=== PATIENT | male | born 1980 | race Caucasian/White ===

== ENCOUNTER → 2020-04-13 02:17 | Outpatient (CLI) | payer OTHER, SELFPAY ==
[2020-04-13 21:58] LABS: SARS-CoV-2 RNA PCR Negative
== END ==
PROVIDERS: PCP Family Medicine; Visit Provider Internal Medicine Gastroenterology
DX: Z01.812 Encounter for preprocedural laboratory examination (principal); Z20.822 Contact with and (suspected) exposure to COVID-19
CPT/HCPCS: C9803; U0003; U0005

== ENCOUNTER 2020-04-16 00:57 | Day surgery (SDC) | payer OTHER, SELFPAY ==
[2020-03-26 08:39] VITALS: BMI 24.4
--- NOTE | 2020-04-13 09:38 | WPDANESEPPF ---
Anes - Initial Pre Proc Eval Procedure: Operation Date: 04/16/20 12:00 Proposed Procedures p Colonoscopy - Jasvir Whelan DO Date/Time: 04/13/20 09:38 Surgeon: Jasvir Whelan DO Pre Op Diagnosis: Bright Red Blood per Rectum, Polyp of Colon Patient Data Age: 40 Gender: M Height: 1.75 m Weight: 75 kg Allergies Allergy/AdvReac Type Severity Reaction Status Date / Time No Known Allergies Allergy Verified 04/16/20 10:33 Home Medications Medication Instructions Recorded Confirmed Type famotidine 20 mg tablet 20 mg PO BID #120 tablet 11/17/19 04/13/20 Rx omeprazole 20 mg capsule,delayed 20 mg PO DAILY #30 cap 02/01/20 04/13/20 Rx release cyanocobalamin (vitamin B-12) 1,000 mcg PO DAILY 03/26/20 04/13/20 History [Vitamin B-12] Patient hx anesthesia problems: none Family hx anesthesia problems: none PMFSH Past Medical History Medical History (Updated 11/11/19 @ 10:23 by Huong Walker NP) Chronic colitis diagnosed 2011 - Dr Moran Hx of hemorrhoids Hyperlipidemia Normal colonoscopy Dr Moran - 2011 Rectal bleeding Surgical History Surgical History (Updated 11/11/19 @ 10:35 by Huong Walker NP) Hx of colonoscopy with polypectomy (~2001) w/Dr Whelan 2001 Social History Social History Smoking packs per day: 1 Smoking cigarettes per day: 20.0 Years smoked: 12 Smoking pack-years: 12.00 Smoking status: Former smoker Tobacco type: cigarettes Alcohol intake: current Alcohol use details: very rarely Substance use type: does not use Living arrangements: with family Gender identity (if verbalized by the patient): Male Spiritual care concerns: No Anes - Eval Final PreProcedure Day of Procedure 04/13/20 09:38 Patient weight: normal Heart: regular rate and rhythm Lungs: clear to auscultation and normal air movement Airway: Mallampati scale class II Neurological: alert and oriented Last oral intake: >/= 8 hours ASA classification: II Emergent: no Anesthetic plan: proceed Anesthesia type and monitoring: general GIVS and standard monitoring Informed Consent: The patient's anesthetic plan and its attendant risks and benefits were discussed with the patient/family/POA. Questions were solicited and answers provided to the satisfaction of the patient/family/POA.
[2020-04-16 10:35] VITALS: BP 120/86; PULSE 82; RESP 18; TEMP 37.2; O2SAT 97
[2020-04-16] MEDS: LACTATED RINGERS 1,000 ML 150 ML IV CONT (10:43)
--- NOTE | 2020-04-16 12:03 | WPDGICN ---
GI Consult Note Consult date/time: 04/16/20 12:03 HPI: Reason for visit is colonoscopy. This very pleasant gentleman seen in consultation request the primary physician. Here we have a gentleman that is been having recurrent rectal bleeding. This most likely perianal in origin. Underlying inflammatory neoplastic disease should be excluded. Previously he has had hyperplastic polyps. GERD well controlled on medication. HLD. Recommendation: Colonoscopy. History: This very pleasant gentleman is here for colonoscopy. Has a history of hyperplastic colon polyps. Continues to have rectal bleeding of bright red blood per rectum. Blood is on the stool and on the tissue paper. He has a history of reflux disease well controlled on medication. Physical examination: General: very pleasant patient in no acute distress. HEENT: Head was normocephalic sclerae is clear mouth without masses neck was supple. Heart: Rate rhythm regular without S3 or S4. Lungs: CTA. Abdomen: Soft with no guarding or rigidity. Bowel sounds were active. Neurologic: Cranial nerves 2 through 12 intact. No focal defects. No clonus. Musculoskeletal system: Revealed no joint tenderness or swelling no muscle atrophy. Extremities: Reveal no significant edema. Skin: Warm and dry with normal turgor. Mental status: intact. Patient is alert and oriented. Review of Systems Review of Systems: All systems reviewed & are unremarkable except as noted in HPI and below PMFSH Past Medical History Medical History (Updated 04/16/20 @ 12:03 by Jasvir Whelan DO) GERD (gastroesophageal reflux disease) HLD (hyperlipidemia) Surgical History Surgical History (Updated 11/11/19 @ 10:35 by Huong Walker NP) Hx of colonoscopy with polypectomy (~2001) w/Dr Whelan 2001 Social History Social History Smoking packs per day: 1 Smoking cigarettes per day: 20.0 Years smoked: 12 Smoking pack-years: 12.00 Smoking status: Former smoker Tobacco type: cigarettes Alcohol intake: current Alcohol use details: very rarely Substance use type: does not use Living arrangements: with family Gender identity (if verbalized by the patient): Male Spiritual care concerns: No Meds Home Medications and Allergies Home Medications Medication Instructions Recorded Confirmed Type famotidine 20 mg tablet 20 mg PO BID #120 tablet 11/17/19 04/13/20 Rx omeprazole 20 mg capsule,delayed 20 mg PO DAILY #30 cap 02/01/20 04/13/20 Rx release cyanocobalamin (vitamin B-12) 1,000 mcg PO DAILY 03/26/20 04/13/20 History [Vitamin B-12] Allergies Allergy/AdvReac Type Severity Reaction Status Date / Time No Known Allergies Allergy Verified 04/16/20 10:33 Vital Signs Vital Signs - 24 hr 04/16/20 10:35 Temperature 37.2 C Pulse Rate 82 Respiratory Rate 18 Blood Pressure 120/86 Pulse Oximetry 97
[2020-04-16] MEDS: SIMETHICONE ORAL SUSPENSION 20 MG/0.3 ML 30 ML BOTTLE 0.6 ML IRRIGATION (12:20)
[2020-04-16 12:30] VITALS: BP 102/59; PULSE 74; RESP 18; O2SAT 96
[2020-04-16 12:40] VITALS: BP 102/60; PULSE 68; RESP 19; O2SAT 96
[2020-04-16 12:50] VITALS: BP 116/73; PULSE 70; RESP 20; O2SAT 97
== END 2020-04-16 12:58 | disposition home or self-care (01) ==
PROVIDERS: PCP Family Medicine; Visit Provider Internal Medicine Gastroenterology
PROC: 0DJD8ZZ Inspection of Lower Intestinal Tract, Via Natural or Artificial Opening Endoscopic (ICD-10-PCS; CPT 45378; principal; 2020-04-16 12:00)
DX: K62.5 Hemorrhage of anus and rectum (principal); K62.1 Rectal polyp; K21.9 Gastro-esophageal reflux disease without esophagitis; E78.5 Hyperlipidemia, unspecified; Z86.010 Personal history of colon polyps; Z87.891 Personal history of nicotine dependence
CPT/HCPCS: 45380; 88305; C9803; J2704; J7120; U0003; U0005

== ENCOUNTER → 2020-04-27 01:32 | Outpatient (CLI) | payer OTHER, SELFPAY ==
[2020-04-28 08:28] LABS: SARS-CoV-2 RNA PCR Negative
== END ==
PROVIDERS: PCP Family Medicine; Visit Provider Internal Medicine Gastroenterology
DX: Z01.812 Encounter for preprocedural laboratory examination (principal); Z20.822 Contact with and (suspected) exposure to COVID-19
CPT/HCPCS: C9803; U0003; U0005

== ENCOUNTER 2020-04-30 00:52 | Day surgery (SDC) | payer OTHER, SELFPAY ==
[2020-04-13 12:21] VITALS: BMI 24.4
[2020-04-30 10:43] VITALS: BP 117/75; PULSE 64; RESP 17; TEMP 36.8; O2SAT 99; BMI 23.9
[2020-04-30] MEDS: LACTATED RINGERS 1,000 ML 150 ML IV CONT (10:49)
--- NOTE | 2020-04-30 11:05 | WPDANESEPPF ---
Anes - Initial Pre Proc Eval Procedure: Operation Date: 04/30/20 12:00 Proposed Procedures p Esophagogastroduodenoscopy - Jasvir Whelan DO Date/Time: 04/30/20 11:05 Surgeon: Jasvir Whelan DO Pre Op Diagnosis: Gastroesophageal Reflux Patient Data Age: 40 Gender: M Height: 5 ft 9 in Weight: 73.5 kg Last Vital Signs Temp 98.2 F 04/30/20 10:43 Pulse 64 04/30/20 10:43 Resp 17 04/30/20 10:43 BP 117/75 04/30/20 10:43 Pulse Ox 99 04/30/20 10:43 Allergies Allergy/AdvReac Type Severity Reaction Status Date / Time No Known Allergies Allergy Verified 04/30/20 10:42 Home Medications Medication Instructions Recorded Confirmed Type famotidine 20 mg tablet 20 mg PO BID #120 tablet 11/17/19 04/30/20 Rx omeprazole 20 mg capsule,delayed 20 mg PO DAILY #30 cap 02/01/20 04/30/20 Rx release cyanocobalamin (vitamin B-12) 1,000 mcg PO DAILY 03/26/20 04/30/20 History [Vitamin B-12] Patient hx anesthesia problems: none Family hx anesthesia problems: none [facility] Past Medical History Medical History (Updated 04/16/20 @ 12:03 by Jasvir Whelan DO) GERD (gastroesophageal reflux disease) HLD (hyperlipidemia) Surgical History Surgical History (Updated 11/11/19 @ 10:35 by Huong Walker NP) Hx of colonoscopy with polypectomy (~2001) w/Dr Whelan 2001 Social History Social History Smoking packs per day: 1 Smoking cigarettes per day: 20.0 Years smoked: 12 Smoking pack-years: 12.00 Smoking status: Former smoker Tobacco type: cigarettes Alcohol intake: current Substance use type: does not use Living arrangements: with family Gender identity (if verbalized by the patient): Male Spiritual care concerns: No Anes - Eval Final PreProcedure Day of Procedure 04/30/20 11:05 Patient weight: overweight Heart: regular rate and rhythm Lungs: clear to auscultation Airway: Mallampati scale class II Neurological: alert and oriented Last oral intake: >/= 8 hours ASA classification: II Emergent: no Anesthetic plan: proceed Anesthesia type and monitoring: general GIVS and standard monitoring Informed Consent: The patient's anesthetic plan and its attendant risks and benefits were discussed with the patient/family/POA. Questions were solicited and answers provided to the satisfaction of the patient/family/POA.
--- NOTE | 2020-04-30 12:04 | WPDHPUPDATE1 ---
History and Physical Update Update Date/Time: 04/30/20 12:04 History and Physical has been reviewed, including an updated exam of the patient. There are NO changes in the patient's condition. Risks, benefits, and alternatives have been discussed and questions answered. Patient agrees to proceed with procedure.
[2020-04-30] MEDS: BENZOCAINE (*SP) 60 ML SPRAY CAN (HURRICAINE) 1 SPRAY MUCOUS MEM (12:05)
[2020-04-30 12:15] VITALS: BP 102/68; PULSE 69; RESP 18; O2SAT 100
[2020-04-30 12:25] VITALS: BP 94/70; PULSE 62; RESP 19; O2SAT 99
[2020-04-30 12:35] VITALS: BP 103/70; PULSE 70; RESP 21; O2SAT 98
== END 2020-04-30 12:48 | disposition home or self-care (01) ==
PROVIDERS: PCP Family Medicine; Visit Provider Internal Medicine Gastroenterology
PROC: 0DJ08ZZ Inspection of Upper Intestinal Tract, Via Natural or Artificial Opening Endoscopic (ICD-10-PCS; CPT 43235; principal; 2020-04-30 12:00)
DX: K21.9 Gastro-esophageal reflux disease without esophagitis (principal); K29.70 Gastritis, unspecified, without bleeding; E78.5 Hyperlipidemia, unspecified; Z87.891 Personal history of nicotine dependence
CPT/HCPCS: 43239; 87081; C9803; J2704; J7120; U0003; U0005

== ENCOUNTER 2020-10-13 20:35 | Emergency (ER) | payer OTHER, SELFPAY ==
[2020-10-13] VITALS (24 sets, daily range): BP systolic 118–146; BP diastolic 71–95; PULSE 65–88; RESP 12–23; TEMP 36.7; O2SAT 95–100
--- NOTE | ~2020-10-13 | XR_ITS ---
EXAMINATION: XR chest 2V DATE: 10/13/2020 20:58 INDICATION: Left chest pain. TECHNIQUE: Frontal and lateral views of the chest were obtained. COMPARISON: None. FINDINGS: There is mild atelectasis in lingula. No pleural effusion or pneumothorax. The heart size i s normal. IMPRESSION: 1. Mild atelectasis in lingula. Reviewed, dictated and finalized at location A.
--- NOTE | 2020-10-13 20:36 | ECG_ITS ---
Measurements Intervals [place] Rate: 62 P: 48 SD: 181 QRS: 66 QRSD: 94 T: 55 QT: 357 QTc: 363 Interpretive Statements SINUS RHYTHM NORMAL ECG Electronically Signed On 10-14-2020 6:39:16 CDT by Dante Calle D.O.
[2020-10-13 21:26] LABS: Basophils Absolute Auto 0.1 K/mm3 (0.0-0.1); Basophils Percent Auto 0.8 % (0.2-1.2); Eosinophils Absolute Auto 0.4 K/mm3 (0-0.3); Eosinophils Percent Auto 5.7 % (0-4.4); Hematocrit 40.2 % (42.0-52.0); Hemoglobin 13.5 g/dL (14.0-18.0); Immature Granulocyte Absolute 0.02 K/mm3 (0.00-0.031); Immature Granulocyte Percent A 0.3 % (0-0.5); Lymphocytes Percent Auto 26.9 % (18.3-44.2); Mean Corpuscular HGB Conc 33.6 g/dl (32-36); Mean Corpuscular Hemoglobin 31.1 pg (26-34); Mean Corpuscular Volume 92.6 fl (80-100); Mean Platelet Volume 9.6 fl (7.4-10.4); Monocytes Absolute Auto 0.7 K/mm3 (0.1-0.6); Monocytes Percent Auto 8.9 % (2.6-8.5); Neutrophils Absolute Auto 4.3 K/mm3 (1.3-6.7); Neutrophils Percent Auto 57.4 % (45.5-73.1); Platelet Count Result 285 k/mm3 (150-375); Red Blood Count 4.34 M/mm3 (4.6-6.20); White Blood Count 7.4 K/mm3 (4.5-10.0)
[2020-10-13 21:28] LABS: Anion Gap 9 mmol/L (8-16); Blood Urea Nitrogen 14 mg/dL (9-20); Carbon Dioxide 26 mmol/L (22-30); Chloride 105 mmol/L (98-107); Estimated Glomerular Filt Rate > 60; Glucose 115 mg/dL (65-110); Potassium 3.6 mmol/L (3.4-5.0); Sodium 140 mmol/L (137-145)
[2020-10-13 21:29] LABS: Partial Thromboplastin Time 26.3 SECONDS (22.3-36.8)
[2020-10-13 21:37] LABS: Troponin I < 0.012 ng/mL (0.000-0.034)
[2020-10-13] MEDS: KETOROLAC 30 MG/ML VIAL (*BKC) IV PUSH (22:05)
[2020-10-13] MEDS: ASPIRIN 81 MG CHEWABLE TABLET 324 MG PO (22:05)
--- NOTE | 2020-10-13 22:57 | ED.GENADULT ---
HPI - General Adult General Chief complaint: Chest Pain Stated complaint: chest pain Time Seen by Provider: 10/13/20 20:37 History of Present Illness HPI narrative: Patient is a 40-year-old male who presents ER with chest pain. Tightness in the center of his chest. No radiation. No aggravating alleviating factors. Started 2 hours prior to arrival. No exertional component. No fevers or chills or sweats. No productive cough. Has not tried any pain medications. Related Data Home Medications Medication Instructions Recorded Confirmed cyanocobalamin (vitamin B-12) 1,000 mcg PO DAILY 03/26/20 04/30/20 [Vitamin B-12] Allergies Allergy/AdvReac Type Severity Reaction Status Date / Time No Known Allergies Allergy Verified 10/13/20 22:08 Review of Systems Review of Systems: All systems reviewed & are unremarkable except as noted in HPI and below Constitutional: Constitutional: Denies chills, Denies fever(s) and Denies weakness ENT: Denies nasal congestion and Denies sore throat Cardiovascular: Cardiovascular: Reports chest pain, Denies rapid heart rate and Denies radiating jaw, neck or arm pain Respiratory: Respiratory: Denies cough and Denies dyspnea Gastrointestinal: Gastrointestinal: Denies abdominal pain, Denies heartburn, Denies nausea and Denies vomiting PMF Past Medical History Medical History (Updated 10/14/20 @ 01:15 by Claude Guerrero MD) GERD (gastroesophageal reflux disease) HLD (hyperlipidemia) Serrated adenoma of colon Surgical History Surgical History (Updated 11/11/19 @ 10:35 by Huong Walker NP) Hx of colonoscopy with polypectomy (~2001) w/Dr Whelan 2001 Social History Social History Smoking packs per day: 1 Smoking cigarettes per day: 20.0 Years smoked: 12 Smoking pack-years: 12.00 Smoking status: Former smoker Tobacco type: cigarettes Alcohol intake: current Alcohol use details: very rarely Substance use type: does not use Gender identity (if verbalized by the patient): Male Spiritual care concerns: No Exam Narrative: GENERAL: Well-appearing, well-nourished, and in no acute distress. HEAD: Normocephalic, atraumatic. ENT: Mucous membranes moist. CHEST: Clear to auscultation. No respiratory distress. HEART: Regular rate and rhythm. Normal peripheral pulses. ABDOMEN: Soft, nontender, nondistended. EXTREMITIES: Normal range of motion. No edema. SKIN: Warm, dry, no rash. NEURO: Alert and oriented x3. PSYCH: Normal mood and affect. Course Course Emergency Course: Chest pain alleviated with Toradol. Will perform second troponin as patient is low risk. Follow-up with PCP if negative. Vital Signs Vital signs: Vital Signs Pulse Rate 69 10/13/20 20:44 Respiratory Rate 15 10/13/20 20:44 Pulse Oximetry 100 10/13/20 20:44 Temperature 98.1 F 10/13/20 22:06 Pulse Rate 75 10/14/20 00:15 Respiratory Rate 16 10/14/20 00:15 Blood Pressure 115/95 H 10/14/20 00:00 Pulse Oximetry 100 10/13/20 22:06 Medical Decision Making Vital Signs Vital Signs: Vital Signs Pulse Rate 69 10/13/20 20:44 Respiratory Rate 15 10/13/20 20:44 Pulse Oximetry 100 10/13/20 20:44 Temperature 98.1 F 10/13/20 22:06 Pulse Rate 75 10/14/20 00:15 Respiratory Rate 16 10/14/20 00:15 Blood Pressure 115/95 H 10/14/20 00:00 Pulse Oximetry 100 10/13/20 22:06 Lab Data Result diagrams: 10/13/20 21:06 10/13/20 21:06 Labs: Lab Results 10/13/20 10/13/20 10/13/20 Range/Units 21:06 21:06 21:06 WBC 7.4 (4.5-10.0) K/mm3 RBC 4.34 L (4.6-6.20) M/mm3 Hgb 13.5 L (14.0-18.0) g/dL Hct 40.2 L (42.0-52.0) % MCV 92.6 (80-100) fl MCH 31.1 (26-34) pg MCHC 33.6 (32-36) g/dl RDW 12.0 (11.5-14.5) % Plt Count 285 (150-375) k/mm3 MPV 9.6 (7.4-10.4) fl Immature Gran % (Auto) 0.3 (0-0.5) % Neut % (Auto) 57.4 (45.5-73.1) % Lymph % (Auto) 26.9
[2020-10-14] VITALS: BP 115/95; PULSE 81; RESP 17
[2020-10-14 00:01] VITALS: PULSE 64
[2020-10-14 00:15] VITALS: PULSE 75; RESP 16
[2020-10-14 01:12] LABS: Troponin I < 0.012 ng/mL (0.000-0.034)
[2020-10-14 01:46] VITALS: BP 100/71; PULSE 77; RESP 20; TEMP 36.3; O2SAT 97
== END 2020-10-14 01:47 | disposition home or self-care (01) ==
PROVIDERS: Emergency Medicine; Emergency Provider Emergency Medicine; PCP Family Medicine
DX: R07.89 Other chest pain (principal); K21.9 Gastro-esophageal reflux disease without esophagitis; E78.5 Hyperlipidemia, unspecified; Z87.891 Personal history of nicotine dependence
CPT/HCPCS: 36415; 71046; 80048; 84484; 85025; 85610; 85730; 93005; 96374; 99284; A9270; J1885

== ENCOUNTER 2021-02-22 10:13 | Emergency (ER) | payer OTHER, SELFPAY ==
--- NOTE | ~2021-02-22 | XR_ITS ---
EXAMINATION: XR hand LT min 3V DATE: 02/22/2021 11:50 INDICATION: Right hand injury. TECHNIQUE: 3 views of right hand were obtained. COMPARISON: None. FINDINGS: Bone alignment is normal. No fracture. Joint spaces are well maintained. IMPRESSION: 1. Normal right hand. Reviewed, dictated and finalized at location A. KIER BOILER IMPRESSION: 1. Normal right hand.
[2021-02-22 11:44] VITALS: BP 119/72; PULSE 86; RESP 18; TEMP 36.8; O2SAT 99
--- NOTE | 2021-02-22 12:05 | ED.UPPEXIN ---
HPI - Extremity Injury (Upper) General Chief Complaint: Extremity Injury, Upper Stated Complaint: Swollen Rt Hand Time Seen by Provider: 02/22/21 12:05 Source: patient and RN notes reviewed Mode of arrival: ambulatory Limitations: no limitations History of Present Illness HPI narrative: Eddie is a 41-year-old male [facility] Patient states he hit the outside of his right hand on a friend from wrestling with his children. Patient complains of swelling and popping to the right fifth finger. Patient patient states he is been using Tylenol for pain. MD complaint: injury to: right and hand Related Data Home Medications Medication Instructions Recorded Confirmed cyanocobalamin (vitamin B-12) 1,000 mcg PO DAILY 03/26/20 02/22/21 [Vitamin B-12] Allergies Allergy/AdvReac Type Severity Reaction Status Date / Time No Known Allergies Allergy Verified 02/22/21 11:47 Review of Systems Review of Systems: CONSTITUTIONAL: Denies body aches, fever, chills, or sweats. EYES: Denies visual changes, redness, or discharge. ENT: Denies rhinorrhea, congestion, sore throat, or otalgia. CARDIOVASCULAR: Denies chest pain, palpitations, or edema. RESPIRATORY: Denies cough or dyspnea. GASTROINTESTINAL: Denies abdominal pain, nausea, vomiting, or diarrhea. GENITOURINARY: Denies dysuria or hematuria. SKIN: Denies rash, itching, or wounds. MUSCULOSKELETAL: Denies back pain, + right hand pain, or myalgia. NEUROLOGIC: Denies headache, numbness, tingling, or weakness. PSYCH: Denies depression or anxiety. All systems reviewed & are unremarkable except as noted in HPI and below PMFSH Past Medical History Medical History Anxiety GERD (gastroesophageal reflux disease) HLD (hyperlipidemia) Serrated adenoma of colon Surgical History Surgical History Hx of colonoscopy with polypectomy (~2001) w/Dr Whelan 2001 Social History Social History Smoking packs per day: 1 Smoking cigarettes per day: 20.0 Years smoked: 12 Smoking pack-years: 12.00 Smoking status: Former smoker Tobacco type: cigarettes Alcohol intake: current Alcohol use details: very rarely Substance use type: does not use Gender identity (if verbalized by the patient): Male Spiritual care concerns: No Comments At time of signature, I have reviewed and agree with nursing past medical, surgical, social and family history unless otherwise noted. Please see nursing chart for further information. There is no relevant family history pertinent to the presenting complaint Exam Narrative: GENERAL: Well-appearing, well-nourished, and in no acute distress. HEAD: Normocephalic, atraumatic. EYES: EOMI. No redness or drainage. Conjunctivae normal. ENT: Mucous membranes pink and moist. Nares clear. No rhinorrhea. TMs normal bilaterally. Throat normal. Uvula midline. NECK: Normal AROM. Supple. No lymphadenopathy. CHEST: No respiratory distress. Clear to auscultation. HEART: Regular rate and rhythm. No murmur appreciated. Normal peripheral pulses. ABDOMEN: Soft, nontender, nondistended, normal active bowel sounds. MUSCULOSKELETAL: No bony tenderness. EXTREMITIES: Normal range of motion. Right fifth finger with mild edema, almost full range of motion with minor deficit in the fifth finger, neurovascular exam is intact SKIN: Warm, dry, no rash. Capillary refill normal. Normal skin turgor. NEURO: No focal deficits. Alert and oriented x3. Gait steady. PSYCH: Normal affect. No signs of depression or anxiety. Course Vital Signs Vital signs: Vital Signs Temperature 36.8 C 02/22/21 11:44 Pulse Rate 86 02/22/21 11:44 Respiratory Rate 18 02/22/21 11:44 Blood Pressure 119/72 02/22/21 11:44 Pulse Oximetry 99 02/22/21 11:44 Temperature 36.8 C
== END 2021-02-22 12:18 | disposition home or self-care (01) ==
PROVIDERS: Emergency Provider Nurse Practitioner Family; PCP Family Medicine
DX: S63.91XA Sprain of unspecified part of right wrist and hand, initial encounter (principal); Z87.891 Personal history of nicotine dependence; W51.XXXA Accidental striking against or bumped into by another person, initial encounter
CPT/HCPCS: 73130; 99213; G0463

== ENCOUNTER 2021-04-28 10:00 | Emergency (ER) | payer OTHER, SELFPAY ==
--- NOTE | 2021-04-28 10:16 | ED.URI ---
HPI - URI/Sore Throat General Chief Complaint: Upper Respiratory Infection Stated Complaint: cold symptoms Time Seen by Provider: 04/28/21 10:19 Source: patient, RN notes reviewed and old records reviewed Mode of arrival: ambulatory Limitations: no limitations History of Present Illness HPI Narrative: 41 year old male presents to [facility] care with complaints of nasal drainage and some congestion since Thursday with body aches and yesterday started with acute sore throat. Patient reports that his son had strep throat 2 weeks ago. He states that he had a fever of 103F at about 0200 today and has been taking Tylenol and Mucinex for his symptoms. Patient states that he has taken 2 COVID home test since with both tests being negative,last one done yesterday. He has had COVID vaccinations and Booster and also flu shot. MD elicited complaint: sore throat Related Data Home Medications Medication Instructions Recorded Confirmed famotidine 20 mg PO DAILY 04/28/21 04/28/21 hydroxyzine HCl 25 mg PO TID 04/28/21 04/28/21 Allergies Allergy/AdvReac Type Severity Reaction Status Date / Time No Known Allergies Allergy Verified 04/28/21 10:31 Review of Systems Review of Systems: CONSTITUTIONAL: Positive fever, chills, or sweats. EYES: Denies visual changes, redness, or discharge. ENT: Positive for rhinorrhea, congestion, sore throat, no otalgia. CARDIOVASCULAR: Denies chest pain, palpitations, or edema. RESPIRATORY: Denies cough or dyspnea. GASTROINTESTINAL: Denies abdominal pain, nausea, vomiting, or diarrhea. GENITOURINARY: Denies dysuria or hematuria. SKIN: Denies rash or itching. MUSCULOSKELETAL: Denies back pain, joint pain, body aches NEUROLOGIC: Denies headache, numbness, or weakness. PSYCHIATRIC: Positive history of anxiety or depression. All systems reviewed & are unremarkable except as noted in HPI and below PMFSH Past Medical History Medical History (Updated 04/28/21 @ 17:24 by Adelaide Gardiner NP) Anxiety GERD (gastroesophageal reflux disease) Surgical History Surgical History (Updated 04/28/21 @ 10:44 by Adelaide Gardiner NP) No history of previous surgery Family History Family History (Updated 04/28/21 @ 10:34 by Adelaide Gardiner NP) Grandparent Acute myocardial infarction Heart disease Social History Social History (Updated 04/28/21 @ 10:43 by Adelaide Gardiner NP) Smoking status: Never smoker Alcohol use details: rare social use Substance use: never Living arrangements: with family Gender identity (if verbalized by the patient): Male Comments At time of signature, agree with nursing past medical, surgical, social and family history. There is no relevant family history pertinent to the presenting complaint Exam Narrative: GENERAL: Illl-appearing, well-nourished, and in no acute distress. HEAD: Normocephalic, atraumatic. EYES: PERRLA and EOMI. ENT: Nares red membranes with clear rhinorrhea No epistaxis. Mucous membranes moist.TM's normal with good light reflex, throat acute redness with white lesions and red swollen tonsils. NECK: Supple. positive for lymphadenopathy CHEST: Clear to auscultation. No respiratory distress. SAO2 98% on room air HEART: Regular rate and rhythm. No murmur heard. Normal peripheral pulses. ABDOMEN: Soft, nontender, nondistended, normal active bowel sounds. EXTREMITIES: Normal range of motion. No edema. SKIN: Warm, dry, no rash. NEURO: No focal deficits. Alert and oriented x3. Course Course Level of Care: Express Care Visit Vital Signs Vital signs: Vital Signs Temperature 36.6 C 04/28/21 10:17 Pulse Rate 100 04/28/21 10:17 Respiratory Rate 18 04/28/21 10:17 Blood Pressure 131/73 04/28/21 10:17 Pulse Oximetry 98 04/28/21 10:17 Temperature 36.6 C 04/28/21 10:17 Pulse Rate 100 04/28/21 10:17 Respiratory Rate 18 04/28/21 10:17 Blood Pressure 131/73 04/28/21 10:17 Pulse Oximetry 98 04/28/21 10:17
[2021-04-28 10:17] VITALS: BP 131/73; PULSE 100; RESP 18; TEMP 36.6; O2SAT 98
== END 2021-04-28 10:48 | disposition home or self-care (01) ==
PROVIDERS: Emergency Provider Registered Nurse; PCP Family Medicine
DX: J02.0 Streptococcal pharyngitis (principal); K21.9 Gastro-esophageal reflux disease without esophagitis; F41.9 Anxiety disorder, unspecified
CPT/HCPCS: 87880; 99203; G0463

== ENCOUNTER 2021-04-30 15:30 | Outpatient (RCR) | payer OTHER, SELFPAY ==
--- NOTE | 2021-03-22 15:50 | OTOPEVAL ---
OCCUPATIONAL THERAPY INITIAL EVALUATION REPORT 03/22/21 Jabier injured his right hand about 1 month ago when he fell and accidently hit his right 5th finger MCP joint on the fridge causing a sagittal band rupture. He presents today for splinting. A custom, well-fitting MCP immobilizer for digits 4 and 5 of the right hand was fabricated and issued. He reports a comfortable fit and is able to use fingers 1-3. No follow up appointments have been scheduled as he just needs immobilization at this time. Plan to reassess in 4 weeks to see if we are ready to progress to ruth strapping or continuing immobilization for 2 additional weeks. Plan to leave his care plan open x4 weeks to allow him to return for any splinting adjustments PRN. Thank you for referring Jabier Bermudez to [facility].? The patient is scheduled to be seen for therapy? 0-1x/week for 6 weeks. Please review, sign, date and return this plan of care KAYY. I agree with and certify that the following plan of care is medically necessary. Referring Physician Date Referring Provider: Payam Chew MD *OT Outpatient Evaluation Start: 03/22/21 14:35 Therapy Assessment Status Assessment Status Assessment Status Evaluation Outpatient Past Medical History Past Medical History No Past Medical/Surgical History Patient/Family Denies Significant Past Medical/ Surgical History Evaluation Information Problem Diagnosis sagittal band rupture right 5th finger Onset 02/21/21 Subjective Information Traumatic injury to the right Query Text:As Reported By Patient/ 5th MCP joint when his hand Family hit against a fridge. 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 Splint/Brace/Cast Assessment Splint and Bracing Assessment Right Hand Fabrication Clinician Made Splint/Brace/Cast Comments custom right 5th MCP immobilizer Reason For Splint/Brace/Cast Optimal Positioning Schedule As Tolerated Site Condition Intact Splinting/Bracing/Casting Comments Decided to include the ring
--- NOTE | 2021-04-17 16:19 | OTOPEVAL ---
OCCUPATIONAL THERAPY RE-EVALUATION AND POC UPDATE 04/17/21 Patient presents today after 4 weeks of immobilizing the right 5th MCP joint due to traumatic sagittal band rupture. He is having no signs of extensor tendon snapping and the tendon is tracking over the MCP joint. Initiated gentle active ROM HEP today of the right hand. Instructed in beginning to complete active ROM regularly and beginning to use the hand for light ADL tasks. Recommended that he continue to restrict any forceful gripping at this time. Plan to see the patient again in 2 weeks to progress down to ruth straps as long as he continues to have no symptoms of extensor tendon snapping. Thank you for referring Jabier Bermudez to [facility].? The patient is scheduled to be seen for OT re-eval in 2 weeks, 04/30/21. Please review, sign, date and return this plan of care KAYY. I agree with and certify that the following plan of care is medically necessary. Referring Physician Date Referring Provider: Payam Chew MD *OT Outpatient Evaluation Start: 03/22/21 14:35 Evaluation Information Problem Diagnosis Sagittal band rupture right 5th finger Onset 02/21/21 Subjective Information Traumatic injury to the right Query Text:As Reported By Patient/ 5th MCP joint when his hand Family hit against a fridge. 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 Reports no pain at the MCP joint. Some areas of pain where the splint was causing pressure. Pain Assessment Timing of Pain Assessment Timing of Pain Assessment Assessment Self Report Self Report Pain Level 0 Pain Score Pain Score 0: Self Report Upper Extremity Range of Motion Finger Range of Motion Right Little Finger MCP Joint Flexion - Active 70 Little Finger MCP Joint Extension - 0 Active Finger Range of Motion Comments Hook fist intact and not painful. Full fist intact with wrist in extension. 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 Did not have him force through a full fist. Finger ab/adduction is WNL. Splint/Brace/Cast Assessment Splint and Bracing Assessment Right Hand Fabrication Clinician Made Splint/Brace/Cast Comments custom right 5th MCP immobilizer Reason For Splint/Brace/Cast Optimal Positioning Schedule As Tolerated Schedule Comments Educated on beginni
--- NOTE | 2021-04-30 16:05 | OTOPEVAL ---
OCCUPATIONAL THERAPY RE-EVALUATION REPORT 04/30/21 Patient presents today after 6 weeks of immobilizing the right 5th MCP joint due to traumatic sagittal band rupture. He has been completing active ROM x2 weeks and had been removing the splint for light ADL tasks. 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 He completes today with minimal to no pain. No signs/symptoms of the extensor tendon subluxing over the metacarpal head. Everything appears to be progressing nicely. Plan to have the patient complete progressive zinc miner blasting strengthening HEP x4 weeks. We have one final appointment scheduled in 4 weeks from now. We may even cancel if the patient is doing well and does not feel the need for a formal reassessment. Thank you for referring Jabier Bermudez to [facility].? The patient is scheduled to be seen for a final therapy re-eval on 05/28/21. Please review, sign, date and return this plan of care KAYY. I agree with and certify that the following plan of care is medically necessary. 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 Two weeks ago he followed up here after wearing the splint regularly x4 weeks. We began to wean off the splint for light tasks and began active ROM HEP. He presents today stating his ROM is back to normal, but he reports a lot of sensitivity when he bumps his hand. Pain Assessment Timing of Pain Assessment Timing of Pain Assessment Re-assessment Pain Scale Pain Scale Used Numeric (1 - 10) Self Report Pain Assessment Right Finger, Little Reported Pain Level 0 Lowest Pain Intensity 0 Greatest Pain Intensity 5 Other Pain Aggravating Factors Bumping the hand Pain Score Pain Score 0: Self Report Upper Extremity Range of Motion Finger Range of Motion Right Little Finger MCP Joint Flexion - Active 95 Finger Range of Motion Comments MCP flexion/extension is back to normal. Full fist - intact. Hook fist - intact. No ROM limitations. Hand Managed Services Consultant/Pinch Strength Assessment Hand Left Managed Services Consultant Strength (lbs) 120 Hand Managed Services Consultant/Pinch Strength Comments Norm: 115 lbs. Right
--- NOTE | 2021-05-21 14:35 | PCOTNOTE ---
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 On his last re-evaluation he began weaning out of his splint and began metallurgy teacher strengthening. We made one final appointment for 05/28/21. Called the patient today and he reports his hand is back to normal and he does not need to formally follow up with therapy. Discharging today with goals met. Thank you for referring this patient to [facility]. Please review, sign, date and return this discharge summary KAYY. I have been updated about the patient's current status and I agree with discharge from the above service at this time. Referring Physician Date Referring Provider: Payam Chew MD
== END 2021-05-22 08:41 | disposition home or self-care (01) ==
LOC: ANHOT 15:30
PROVIDERS: PCP Family Medicine; Referring Provider Plastic Surgery; Visit Provider Plastic Surgery
DX: S66.30 Unspecified injury of extensor muscle, fascia and tendon of other and unspecified finger at wrist and hand level (principal)
CPT/HCPCS: 97110; 97165; L3913

== ENCOUNTER 2023-09-08 12:57 | Emergency (ER) | payer OTHER, SELFPAY ==
[2023-09-08 13:10] VITALS: BP 135/86; PULSE 77; RESP 16; TEMP 36.3; O2SAT 100
--- NOTE | 2023-09-08 13:22 | ED.URI ---
HPI - URI/Sore Throat General Chief Complaint: Ear Stated Complaint: dizziness Time Seen by Provider: 09/08/23 13:22 Source: patient Mode of arrival: ambulatory Limitations: no limitations History of Present Illness HPI Narrative: 43-year-old male with a history of vertigo presented for complaint of feeling off balance when turning his head side to side or moving too quickly for about 3 days. Also reports the symptoms occur when he has been walking for a few minutes. He states when he is sitting he has no problems, he was able to drive from [place] to the clinic. States I do not feel dizzy, just off balance sometimes. He denies headache, numbness, tingling, weakness of extremities or face, vision changes, nausea, vomiting, diarrhea, lethargy, confusion, nasal congestion, fevers or chills. Has taken meclizine in the past, but not getting relief this episode. Endorses left ear pressure/fullness for one month; was told by pcp he does not have any apparent indication for the symptoms. Related Data Home Medications Medication Instructions Recorded Confirmed omeprazole 20 mg capsule,delayed 20 mg PO DAILY 03/13/22 09/08/23 release dextroamphetamine-amphetamine 20 20 mg PO PRN PRN forgetfulness 09/08/23 09/08/23 mg tablet (Adderall) Allergies Allergy/AdvReac Type Severity Reaction Status Date / Time No Known Allergies Allergy Verified 09/08/23 13:14 Review of Systems Review of Systems: CONSTITUTIONAL: Denies malaise, chills, or fever. EYES: Denies visual changes, photophobia, redness, or discharge. ENT: Denies rhinorrhea, congestion, sinus pain, and sore throat. Reports ear pain/fullness CARDIOVASCULAR: Denies chest pain, palpitations, or edema. RESPIRATORY: Denies cough or dyspnea. GASTROINTESTINAL: Denies abdominal pain, nausea, vomiting, diarrhea SKIN: Denies rash or itching. MUSCULOSKELETAL: Denies myalgia. NEUROLOGIC: reports dizziness Denies headache. All systems reviewed & are unremarkable except as noted in HPI and below PMFSH Past Medical History Medical History ADHD (attention deficit hyperactivity disorder) Anxiety Dyslipidemia GERD (gastroesophageal reflux disease) HLD (hyperlipidemia) Serrated adenoma of colon Vitamin D deficiency Surgical History Surgical History Hx of colonoscopy with polypectomy (~2001) w/Dr Whelan 2001 No history of previous surgery Family History Family History Grandparent Acute myocardial infarction Heart disease Social History Social History Smoking packs per day: 1 Smoking cigarettes per day: 20.0 Years smoked: 12 Smoking pack-years: 12.00 Smoking status: Former smoker Tobacco type: cigarettes Smoking end date: 02/23/17 Alcohol intake: current Alcohol use details: rare social use Substance use: never Substance use type: does not use Lack of Transportation: No Current Housing: I Have Housing Concerned About Future Housing: No Difficulty Paying Gas/Electric Bills: No Difficulty Paying for Meds: No Currently Unemployed: No Education: Trade/Vocational Certificate Difficulty w/ Childcare or Family Care: No Living arrangements: with family Additional living arrangements comments: 3 kids Occupation/Education: occupation Gender identity (if verbalized by the patient): Male Spiritual care concerns: No Agree to blood products: Yes Comments At time of signature, agree with nursing past medical, surgical, social and family history. There is no relevant family history pertinent to the presenting complaint Exam Narrative: GENERAL: Well-appearing, well-nourished, and in no acute distress. HEAD: Normocephalic EYES: PERRLA, conjunctivae clear ENT: Nares clear. Mucous membranes moist. TMs pear
== END 2023-09-08 13:40 | disposition home or self-care (01) ==
PROVIDERS: Emergency Provider Nurse Practitioner Family; PCP Family Medicine
DX: R42 Dizziness and giddiness (principal); Z87.891 Personal history of nicotine dependence; F90.9 Attention-deficit hyperactivity disorder, unspecified type; E78.5 Hyperlipidemia, unspecified; K21.9 Gastro-esophageal reflux disease without esophagitis; F41.9 Anxiety disorder, unspecified
CPT/HCPCS: 99211; G0463

== ENCOUNTER 2023-12-24 14:44 | Emergency (ER) | payer OTHER, SELFPAY ==
[2023-12-24 14:52] VITALS: BP 144/80; PULSE 77; RESP 18; TEMP 36.8; O2SAT 97
--- NOTE | 2023-12-24 14:56 | ED.URI ---
HPI - URI/Sore Throat General Chief Complaint: Upper Respiratory Infection Stated Complaint: throat soreness Time Seen by Provider: 12/24/23 14:48 Source: patient Mode of arrival: ambulatory Limitations: no limitations History of Present Illness HPI Narrative: Dmitry is a 43-year-old male patient presenting to the clinic today with complaints of runny nose, nasal congestion, and sore throat x1 week. He reports no known fever or chills. Denies any chest pain or shortness of breath. Feels as though there was white patches in the back of his throat over the last few days and woke up this morning with some uvula swelling. Denies any difficulty swallowing or drooling. MD elicited complaint: sore throat and nasal congestion Related Data Home Medications Medication Instructions Recorded Confirmed omeprazole 20 mg capsule,delayed 20 mg PO DAILY 03/13/22 12/24/23 release meclizine 25 mg tablet 25 mg PO BID dizziness 12/24/23 12/24/23 Allergies Allergy/AdvReac Type Severity Reaction Status Date / Time No Known Allergies Allergy Verified 12/24/23 14:55 Review of Systems Review of Systems: Pertinent positives per HPI. Patient denies any fever, chills, rash, headache, visual changes, dizziness, cough, shortness of breath, chest pain, palpitations, nausea, vomiting, diarrhea, constipation, abdominal pain, or any urinary issues. [facility] Past Medical History Medical History ADHD (attention deficit hyperactivity disorder) Anxiety Dyslipidemia GERD (gastroesophageal reflux disease) HLD (hyperlipidemia) Serrated adenoma of colon Vitamin D deficiency Surgical History Surgical History Hx of colonoscopy with polypectomy (~2001) w/Dr Whelan 2001 No history of previous surgery Family History Family History Grandparent Acute myocardial infarction Heart disease Social History Social History Smoking packs per day: 1 Smoking cigarettes per day: 20.0 Years smoked: 12 Smoking pack-years: 12.00 Smoking status: Former smoker Tobacco type: cigarettes Smoking end date: 02/23/17 Alcohol intake: current Alcohol use details: rare social use Substance use: never Substance use type: does not use Lack of Transportation: No Current Housing: I Have Housing Concerned About Future Housing: No Difficulty Paying Gas/Electric Bills: No Difficulty Paying for Meds: No Currently Unemployed: No Education: Trade/Vocational Certificate Difficulty w/ Childcare or Family Care: No Living arrangements: with family Additional living arrangements comments: 3 kids Occupation/Education: occupation Gender identity (if verbalized by the patient): Male Spiritual care concerns: No Agree to blood products: Yes Comments At the time of my signature, I reviewed and agree with the nursing past medical, surgical, social, and family history. There is no relevant family history pertinent to the patient complaint. Exam Narrative: General: Well-developed, well nourished, in no apparent distress Head: Normocephalic, atraumatic Eyes: Pupils equally round and reactive to light bilaterally, EOM intact, sclera and conjunctive clear, no discharge, lids normal Ears: TMs intact and clear, ear canals clear, no drainage, grossly hearing normal. Nose: Nares patent, no discharge, no inflammation, no sinus tenderness. Mouth: Oral pharynx without lesions or masses, good dentition, MMM. Neck: Supple, trachea midline, no enlargement of anterior or posterior cervical nodes, no thyroid masses or goiter palpable. Cardio: Regular rate and rhythm, s1 and s2 normal, no murmur appreciated. Resp: Clear to auscultation bilaterally, no rhonchi, rales, wheezing or rubs Course Course Emergency Course: Portions of this record may have been created with voice recognition software. Level of Care: Express Care Visit Vital Signs Vital signs: Vital Signs Temperature 36.8 C 12/24/23 14:52 Pulse Rate 77 12/24/23 14:52 Respiratory Rate 18 12/24/23 14:52 Blood Pressure 144/80 H 12/24/23 14:52 Pulse Oximetry 97 12/24/23 14:52 Oxygen Delivery Room Air 12/24/23 14:52 Temperature 36.8 C 12/24/23 14:52 Pulse Rate 77 12/24/23 14:52 Respiratory Rate 18 12/24/23 14:52 Blood Pressure 144/80 H 12/24/23 14:52 Pulse Oximetry 97 12/24/23 14:52 Oxygen Delivery Room Air 12/24/23 14:52 Vital signs reviewed MDM - URI/Sore Throat MDM Narrative Medical decision making narrative: At the time of visit patient is resting comfortably on the exam table. Patient appears to be nontoxic. Labs: Strep test was negative in the clinic today. We will send for culture. Plan: I suspect patient has pharyngitis/URI. Will send in prescription for prednisone to help with nasal drainage and uvula swelling. Supportive measures were discussed with the patient and they voiced understanding discharge instructions and agrees to treatment plan. Return precautions reviewed Differential Diagnosis Differential diagnosis: Likely upper respiratory infection, otitis media, sinusitis, viral infection, bronchitis, influenza, pharyngitis and other (COVID) Discharge Plan Discharge Clinical Impression: URI (upper respiratory infection) Qualifiers: URI type: unspecified URI Qualified Code(s): J06.9 - Acute upper respiratory infection, unspecified Pharyngitis Qualifiers: Pharyngitis/tonsillitis etiology: unspecified etiology Qualified Code(s): J02.9 - Acute pharyngitis, unspecified Patient Disposition: Home, Self-Care Condition: Stable Instructions: Antibiotic Form, Pharyngitis (ED), Cold Symptoms (ED) Additional Instructions: Take prescription medications only as prescribed-prednisone Increase fluids and stay well hydrated Tylenol/motrin for pain/fever Flonase and OTC antihistamines as directed Vicks vapor rub to open sinuses Sinus rinses for congestion Cepacol spray, cough drops, throat lozenges, warm tea with honey/lemon, gargle salt water to soothe throat BRAT diet for diarrhea Clear liquids x 24 hours then advance as tolerated for nausea/vomiting Go to the ED if you develop a worsening in your condition- high fever not controlled by Tylenol or Motrin, dehydration, weakness, lethargy, shortness of breath, or chest pain. Follow up with your PCP in 3-5 days if symptoms persist. Prescriptions: New prednisone 20 mg tablet 40 mg PO DAILY 5 Days Qty: 10 0RF No Action meclizine 25 mg tablet 25 mg PO BID omeprazole 20 mg capsule,delayed release(DR/EC) 20 mg PO DAILY escitalopram oxalate [Lexapro] 20 mg tablet 20 mg PO DAILY Qty: 90 1RF atorvastatin [Lipitor] 20 mg tablet 20 mg PO QHS Qty: 90 0RF Rx Instructions: due for appointment. Please call office. last refill until seen testosterone cypionate [Depo-Testosterone] 200 mg/mL oil 200 mg IM .every 2 weeks Qty: 10 2RF dextroamphetamine-amphetamine [Adderall] 20 mg tablet 20 mg PO DAILY Qty: 30 0RF Follow-up/Referrals: Lucas Hines MD [Primary Care Provider] - Time of Disposition: 15:18 Quality NIHSS Nursing Documentation ED NIHSS nursing documentation: reviewed/agree
[2023-12-24 15:19] LABS: EDSTREPNEGPOS1 Negative (Negative)
== END 2023-12-24 15:23 | disposition home or self-care (01) ==
PROVIDERS: Emergency Provider Nurse Practitioner Family; PCP Family Medicine
DX: J06.9 Acute upper respiratory infection, unspecified (principal); J02.9 Acute pharyngitis, unspecified; Z87.891 Personal history of nicotine dependence; E78.5 Hyperlipidemia, unspecified; K21.9 Gastro-esophageal reflux disease without esophagitis
CPT/HCPCS: 87081; 87880; 99213; G0463